=== PATIENT | female | born 1955 | race Caucasian/White ===

== ENCOUNTER 2021-12-31 13:38 | Outpatient (CLI) | payer OTHER, MEDICAID | END 2021-12-31 13:39 | disposition home or self-care (01) | LOC: CSHMRI 13:38 | PROVIDERS: ATTEND Orthopaedic Surgery | DX: M23.91 Unspecified internal derangement of right knee (principal); M87.9 Osteonecrosis, unspecified; M84.451A Pathological fracture, right femur, initial encounter for fracture ==

== ENCOUNTER 2024-09-06 09:45 | Outpatient (CLI) | payer MEDICARE, MEDICAID | END 2024-09-06 09:46 | disposition home or self-care (01) | LOC: CSHULT 09:45 | PROVIDERS: ATTEND Internal Medicine | DX: N18.4 Chronic kidney disease, stage 4 (severe) (principal); D63.1 Anemia in chronic kidney disease; Z79.899 Other long term (current) drug therapy; R16.2 Hepatomegaly with splenomegaly, not elsewhere classified; N28.1 Cyst of kidney, acquired; N28.89 Other specified disorders of kidney and ureter | CPT/HCPCS: 76700 ==

== ENCOUNTER → 2025-04-14 | Day surgery (SDC) | payer MEDICARE, MEDICAID ==
[~2025-04-14] MED LIST: Sodium Bicarbonate 2.5 MEQ/5 ML SDV ONE
== END ==
LOC: CSHULT 12:58
PROVIDERS: ATTEND Family Medicine
PROC: 0G9K3ZX Drainage of Thyroid Gland, Percutaneous Approach, Diagnostic (ICD-10-PCS; principal; 2025-04-14)
DX: E04.2 Nontoxic multinodular goiter (principal); Z88.8 Allergy status to other drugs, medicaments and biological substances
CPT/HCPCS: 10005; 10006; 88173